=== PATIENT | female | born 1960 | race Hispanic/Latino ===

== ENCOUNTER 2023-12-13 09:44 | Inpatient (IN) | payer OTHER, SELFPAY ==
[2023-12-13 10:41] LABS: #Basophils Less than 0.03 10x3/uL (0.0-0.2); %Basophils 0.2 % (0.0-1.0); %Eosinophils 2.3 % (0.0-10.0); %Lymphocytes 12.3 % (21.0-51.0); %Monocytes 8.4 % (0.0-10.0); %Neutrophils 76.4 % (42.0-75.0); Hematocrit 29.4 % (36.0-47.0); Hemoglobin 9.8 g/dL (12.0-16.0); Mean Corpuscular HGB CONC 33.3 g/dL (32.0-36.0); Mean Corpuscular Hemoglobin 29.4 pg (27.0-31.0); Mean Corpuscular Volume 88.3 fL (78.0-98.0); Mean Platelet Volume 10.4 fL (7.4-10.4); Platelet Count 272 10x3/uL (130-400); RBC Distribution Width 14.1 % (11.5-14.5); Red Blood Cell (RBC) Count 3.33 mill/uL (4.20-5.40)
[2023-12-13 11:00] LABS: ALT (SGPT) 33 U/L (8-55); AST (SGOT) 31 U/L (5-34); Alkaline Phosphatase 222 U/L (40-110); Anion Gap 17 mmol/L (10-20); BUN (Urea Nitrogen) 52 mg/dL (9.8-20.1); Bilirubin, Total 0.7 mg/dL (0.2-1.2); Calc. Creatinine Clearance 0 mL/min (70-130); Calcium 8.8 mg/dL (7.8-10.44); Carbon Dioxide 23 mmol/L (23-31); Chloride 101 mmol/L (98-107); Estimated GFR 21; Globulin 4.2 g/dL (2.4-3.5); Glucose 88 mg/dL (80-115); Magnesium 1.6 mg/dL (1.6-2.6); Potassium 4.2 mmol/L (3.5-5.1); Protein, Total 7.2 g/dL (5.8-8.1); Sodium 137 mmol/L (136-145)
[2023-12-13 11:22] LABS: Troponin I 0.063 ng/mL (< 0.028)
[2023-12-13] MEDS ORDERED: Furosemide 40 MG (4 mL) VIAL ONE (12:21)
[2023-12-13] MEDS ORDERED: Aspirin Chewable 81 MG TAB ONE (12:21)
[2023-12-13] MEDS ORDERED: Nitroglycerin 0.4 MG TAB 1 EACH ONE (12:24)
[2023-12-13 13:53] LABS: Troponin I 0.054 ng/mL (< 0.028)
[2023-12-13] MEDS ORDERED: Dextrose 50% Abboject 50 ML SYRINGE SLOW IVP PRN (13:56)
[2023-12-13] MEDS ORDERED: Glucagon 1 MG/ML KIT IM PRN (13:56)
[2023-12-13] MEDS ORDERED: Dextrose 5% in Water 1,000 ML IV PRN (13:56)
[2023-12-13] MEDS ORDERED: Albuterol 200 PUFF INH INH PRN (14:36)
[2023-12-13 15:58] LABS: Troponin I 0.049 ng/mL (< 0.028)
[2023-12-13] MEDS: Nortriptyline 10 MG CAP PO SCH (20:59)
[2023-12-13] MEDS: Atorvastatin Calcium 40 MG TAB PO SCH (20:59)
[2023-12-13] MEDS: Gabapentin 300 MG CAP PO SCH (20:59)
[2023-12-13] MEDS: Insulin Glargine 30 UNITS/0.3 ML VIAL SC SCH (21:00)
[2023-12-14 04:52] LABS: #Basophils 0.03 10x3/uL (0.0-0.2); %Basophils 0.4 % (0.0-1.0); %Eosinophils 4.5 % (0.0-10.0); %Lymphocytes 14.2 % (21.0-51.0); %Monocytes 9.2 % (0.0-10.0); %Neutrophils 71.2 % (42.0-75.0); Hematocrit 28.1 % (36.0-47.0); Hemoglobin 9.1 g/dL (12.0-16.0); Mean Corpuscular HGB CONC 32.4 g/dL (32.0-36.0); Mean Corpuscular Hemoglobin 28.9 pg (27.0-31.0); Mean Corpuscular Volume 89.2 fL (78.0-98.0); Mean Platelet Volume 10.4 fL (7.4-10.4); Platelet Count 260 10x3/uL (130-400); Red Blood Cell (RBC) Count 3.15 mill/uL (4.20-5.40)
[2023-12-14] MEDS: Furosemide 40 MG (4 mL) VIAL SLOW IVP SCH ×2 (06:09→14:28)
[2023-12-14] MEDS: Aspirin 81 mg Enteric Coated Tablet PO SCH (08:23)
[2023-12-14] MEDS: NIFEdipine XL 60 MG ER.TAB PO SCH (08:23)
[2023-12-14] MEDS: Cholecalciferol 1,000 UNITS (25 MCG) TAB PO SCH (08:23)
[2023-12-14] MEDS: Ferrous Sulfate 325 MG TAB PO SCH (08:26)
[2023-12-14] MEDS: Allopurinol 100 MG TAB PO SCH (08:26)
[2023-12-14] MEDS: Albumin 25% 25 GM (100 mL) BOT IVPB SCH (14:56)
[2023-12-14 20:28] LABS: Bacteria/HPF None Seen HPF (None Seen); WBC/HPF 0-3 HPF (0-3)
[2023-12-14 20:52] LABS: Creatinine, Urine 84.94 mg/dL (47-110)
[2023-12-14 21:26] LABS: Bilirubin Negative (Negative); Blood, Urine Large (Negative); Glucose, Urine (Dipstick) Negative (Negative); Ketone, Urine Negative (Negative); Leukocyte Negative (Negative); Nitrite Negative (Negative); Protein, Urine (Dipstick) 100 mg/dL (Neg-Trace); Specific Gravity, Urine 1.025 (1.005-1.030); Urobilinogen 0.2 mg/dL (Less than 2); pH, Urine 5.5 (5.0-9.0)
[2023-12-14 21:29] LABS: Clarity Hazy (Clear)
[2023-12-15 09:02] LABS: Anion Gap 20 mmol/L (10-20); BUN (Urea Nitrogen) 49 mg/dL (9.8-20.1); Calc. Creatinine Clearance 39 mL/min (70-130); Calcium 9.3 mg/dL (7.8-10.44); Carbon Dioxide 24 mmol/L (23-31); Chloride 100 mmol/L (98-107); Estimated GFR 21; Glucose 106 mg/dL (80-115); Potassium 3.9 mmol/L (3.5-5.1); Sodium 140 mmol/L (136-145)
[2023-12-15 09:31] LABS: Anion Gap 18 mmol/L (10-20); BUN (Urea Nitrogen) 50 mg/dL (9.8-20.1); Calc. Creatinine Clearance 42 mL/min (70-130); Calcium 9.3 mg/dL (7.8-10.44); Carbon Dioxide 26 mmol/L (23-31); Chloride 100 mmol/L (98-107); Estimated GFR 23; Glucose 117 mg/dL (80-115); Potassium 3.8 mmol/L (3.5-5.1); Sodium 140 mmol/L (136-145)
[2023-12-15] MEDS: Tuberculin PPD 0.1 ML SYRINGE (10 TEST VIAL) I-DERMAL SCH (15:53)
[2023-12-15] MEDS: Metolazone 5 MG TAB PO SCH (15:54)
[2023-12-15] MEDS: Furosemide 100 MG (10 mL) VIAL SLOW IVP SCH (15:54)
[2023-12-15 16:48] LABS: SARS-CoV-2 E Target Negative; SARS-CoV-2 N2 Target Negative; SARS-CoV-2 NAA Rapid Test Not Detected (NotDetected); SARS-CoV-2 RdRP gene Negative
[2023-12-16 05:34] LABS: Anion Gap 17 mmol/L (10-20); BUN (Urea Nitrogen) 54 mg/dL (9.8-20.1); Calc. Creatinine Clearance 33 mL/min (70-130); Calcium 9.2 mg/dL (7.8-10.44); Carbon Dioxide 27 mmol/L (23-31); Chloride 98 mmol/L (98-107); Estimated GFR 17; Glucose 149 mg/dL (80-115); Potassium 3.5 mmol/L (3.5-5.1); Sodium 138 mmol/L (136-145)
[2023-12-16] MEDS: Furosemide 100 MG (10 mL) VIAL SLOW IVP SCH (06:01)
[2023-12-16] MEDS ORDERED: Bupivacaine 0.25% HCL 30 ML VIAL ONE (07:24)
[2023-12-16] MEDS ORDERED: EPINEPHrine 1 MG/ML VIAL ONE (07:24)
[2023-12-16] MEDS ORDERED: Lidocaine 2% PF 5 ML VIAL ONE (07:24)
[2023-12-16] MEDS ORDERED: Heparin 10,000 UNITS/ 10 ML VIAL ONE ×2 (07:24→09:51)
[2023-12-16] MEDS ORDERED: PROPOFOL 20 ML ONE (07:38)
[2023-12-16] MEDS ORDERED: fentaNYL PF 100 MCG/2 ML SYRINGE ONE (07:38)
[2023-12-16] MEDS ORDERED: Ondansetron PF 4 MG/2 ML Vial ONE (07:39)
[2023-12-16] MEDS ORDERED: Lidocaine 1% PF 5 ML VIAL ONE (07:39)
[2023-12-16] MEDS ORDERED: Lidocaine 2% 6 ML (Jelly) SYR ONE (07:41)
[2023-12-16] MEDS ORDERED: Ondansetron HCl/PF 4 MG/2 ML Vial IVP PRN (07:50)
[2023-12-16] MEDS ORDERED: Promethazine HCl 25 MG/ML VIAL IM PRN (07:50)
[2023-12-16] MEDS ORDERED: CEFAZOLIN 2 GM VIAL ONE (08:07)
[2023-12-16] MEDS ORDERED: Sodium Chloride 0.9% 100 ML ONE (08:07)
[2023-12-16 08:11] LABS: Bacteria/HPF None Seen HPF (None Seen); Bilirubin Negative (Negative); Blood, Urine 2+ (Negative); Clarity Clear (Clear); Glucose, Urine (Dipstick) Normal (Negative); Ketone, Urine Negative (Negative); Leukocyte Negative Leu/uL (Negative); Nitrite Negative (Negative); Protein, Urine (Dipstick) 200 mg/dL (Neg-Trace); Specific Gravity, Urine 1.011 (1.002-1.036); Squamous Epithelial 0-3 HPF (0-3); Urobilinogen Normal mg/dL (Less than 2); WBC/HPF 0-3 HPF (0-3); pH, Urine 5.5 (5.0-9.0)
[2023-12-16 10:39] LABS: Creatinine, Urine 68.81 mg/dL (47-110)
[2023-12-16] MEDS: Aspirin 81 mg Enteric Coated Tablet PO SCH (13:26)
[2023-12-17] MEDS ORDERED: Heparin 10,000 UNITS/ 10 ML VIAL ONE (09:58)
[2023-12-17 11:12] LABS: Anion Gap 16 mmol/L (10-20); BUN (Urea Nitrogen) 35 mg/dL (9.8-20.1); Calc. Creatinine Clearance 56 mL/min (70-130); Calcium 9.1 mg/dL (7.8-10.44); Carbon Dioxide 26 mmol/L (23-31); Chloride 101 mmol/L (98-107); Estimated GFR 31; Glucose 139 mg/dL (80-115); Potassium 3.4 mmol/L (3.5-5.1); Sodium 140 mmol/L (136-145)
[2023-12-17] MEDS ORDERED: Ipratropium/Albuterol 3 ML NEB NEB PRN (22:56)
[2023-12-17] MEDS: Sodium Chloride 0.65% Nasal 44 ML BOT EA NARE PRN (23:46)
[2023-12-18 06:18] LABS: Anion Gap 15 mmol/L (10-20); BUN (Urea Nitrogen) 30 mg/dL (9.8-20.1); Calc. Creatinine Clearance 45 mL/min (70-130); Calcium 8.9 mg/dL (7.8-10.44); Carbon Dioxide 31 mmol/L (23-31); Chloride 101 mmol/L (98-107); Estimated GFR 24; Glucose 150 mg/dL (80-115); Potassium 3.6 mmol/L (3.5-5.1); Sodium 143 mmol/L (136-145)
[2023-12-18 07:51] VITALS: BMI 41.2
[2023-12-18] MEDS ORDERED: Heparin 10,000 UNITS/ 10 ML VIAL ONE (10:07)
[2023-12-18] MEDS: READ PPD TEST SITE PO SCH (16:37)
[2023-12-18] MEDS: Insulin Lispro 100 UNIT/ML 10 ML VIAL SC PRN (17:27)
[2023-12-19 05:43] LABS: #Basophils 0.03 10x3/uL (0.0-0.2); %Basophils 0.4 % (0.0-1.0); %Eosinophils 5.7 % (0.0-10.0); %Lymphocytes 15.6 % (21.0-51.0); %Monocytes 5.9 % (0.0-10.0); Hematocrit 28.6 % (36.0-47.0); Hemoglobin 9.3 g/dL (12.0-16.0); Mean Corpuscular HGB CONC 32.5 g/dL (32.0-36.0); Mean Corpuscular Hemoglobin 28.8 pg (27.0-31.0); Mean Corpuscular Volume 88.5 fL (78.0-98.0); Mean Platelet Volume 9.7 fL (7.4-10.4); Platelet Count 332 10x3/uL (130-400); RBC Distribution Width 13.4 % (11.5-14.5); Red Blood Cell (RBC) Count 3.23 mill/uL (4.20-5.40)
[2023-12-19 05:59] LABS: Albumin 2.9 g/dL (3.4-4.8); Anion Gap 12 mmol/L (10-20); BUN (Urea Nitrogen) 17 mg/dL (9.8-20.1); Calc. Creatinine Clearance 54 mL/min (70-130); Calcium 8.7 mg/dL (7.8-10.44); Carbon Dioxide 30 mmol/L (23-31); Chloride 101 mmol/L (98-107); Estimated GFR 32; Glucose 156 mg/dL (80-115); Phosphorus 2.6 mg/dL (2.3-4.7); Potassium 3.2 mmol/L (3.5-5.1); Sodium 140 mmol/L (136-145)
[2023-12-19] MEDS ORDERED: Heparin 10,000 UNITS/ 10 ML VIAL ONE (10:02)
[2023-12-20 05:07] LABS: #Basophils 0.03 10x3/uL (0.0-0.2); %Basophils 0.4 % (0.0-1.0); %Eosinophils 3.9 % (0.0-10.0); %Lymphocytes 21.4 % (21.0-51.0); %Neutrophils 65.8 % (42.0-75.0); Hematocrit 30.9 % (36.0-47.0); Mean Corpuscular HGB CONC 32.4 g/dL (32.0-36.0); Mean Corpuscular Hemoglobin 29.5 pg (27.0-31.0); Mean Corpuscular Volume 91.2 fL (78.0-98.0); Mean Platelet Volume 9.3 fL (7.4-10.4); Platelet Count 352 10x3/uL (130-400); RBC Distribution Width 13.5 % (11.5-14.5); Red Blood Cell (RBC) Count 3.39 mill/uL (4.20-5.40)
[2023-12-20 17:56] LABS: HBSAB Concentration 26.98 mIU/mL; HBsAg Index 0.28 S/CO (0-0.99); Hep B Surf AB REACTIVE (NonReactive); Hep B Surf Ag NONREACTIVE S/CO (NonReactive); Hep C IgG Ab NONREACTIVE S/CO (NonReactive); Hep C Index 0.05 S/CO (0-0.79)
[2023-12-20 18:48] LABS: Hep B Core Total Ab NONREACTIVE (NonReactive)
[2023-12-21 05:07] LABS: Anion Gap 12 mmol/L (10-20); BUN (Urea Nitrogen) 37 mg/dL (9.8-20.1); Calc. Creatinine Clearance 33 mL/min (70-130); Calcium 9.2 mg/dL (7.8-10.44); Carbon Dioxide 28 mmol/L (23-31); Chloride 102 mmol/L (98-107); Estimated GFR 19; Glucose 144 mg/dL (80-115); Potassium 3.2 mmol/L (3.5-5.1); Sodium 139 mmol/L (136-145)
[2023-12-21] MEDS ORDERED: Acetaminophen 325 MG TAB PO PRN (07:49)
[2023-12-21 11:11] VITALS: BMI 38.1
[2023-12-21] MEDS: Potassium Bicarbonate/Cit Ac 20 MEQ TAB PO SCH ×2 (13:26→13:27)
[2023-12-21] MEDS ORDERED: Heparin 10,000 UNITS/ 10 ML VIAL ONE (13:27)
[2023-12-23 04:36] LABS: Anion Gap 15 mmol/L (10-20); BUN (Urea Nitrogen) 41 mg/dL (9.8-20.1); Calc. Creatinine Clearance 32 mL/min (70-130); Calcium 9.3 mg/dL (7.8-10.44); Carbon Dioxide 26 mmol/L (23-31); Chloride 102 mmol/L (98-107); Estimated GFR 18; Glucose 189 mg/dL (80-115); Potassium 3.1 mmol/L (3.5-5.1); Sodium 140 mmol/L (136-145)
[2023-12-23 13:33] VITALS: BP 144/84; TEMP 98.3
[2023-12-23] MEDS ORDERED: Heparin 10,000 UNITS/ 10 ML VIAL ONE (13:46)
== END 2023-12-23 14:35 | disposition home or self-care (01) | DRG 280 ==
LOC: ERS 09:44 → ERHOLD 12:33 → 2SW 19:32 → OBSVTOIN 12-14 18:10
PROVIDERS: ADMIT Internal Medicine; ATTEND Internal Medicine
PROC: 30233J1 Transfusion of Nonautologous Serum Albumin into Peripheral Vein, Percutaneous Approach (ICD-10-PCS; 2023-12-14)
PROC: 0JH63XZ Insertion of Tunneled Vascular Access Device into Chest Subcutaneous Tissue and Fascia, Percutaneous Approach (ICD-10-PCS; principal; 2023-12-16)
PROC: 02HV33Z Insertion of Infusion Device into Superior Vena Cava, Percutaneous Approach (ICD-10-PCS; 2023-12-16)
PROC: 3E033XZ Introduction of Vasopressor into Peripheral Vein, Percutaneous Approach (ICD-10-PCS; 2023-12-16)
DX: I13.2 Hypertensive heart and chronic kidney disease with heart failure and with stage 5 chronic kidney disease, or end stage renal disease (principal); I50.33 Acute on chronic diastolic (congestive) heart failure; I21.A1 Myocardial infarction type 2; J96.01 Acute respiratory failure with hypoxia; N18.6 End stage renal disease; G47.33 Obstructive sleep apnea (adult) (pediatric); D63.1 Anemia in chronic kidney disease; E87.6 Hypokalemia; Z79.82 Long term (current) use of aspirin; Z79.899 Other long term (current) drug therapy; E66.01 Morbid (severe) obesity due to excess calories; Z68.37 Body mass index [BMI] 37.0-37.9, adult; M10.9 Gout, unspecified; Z79.4 Long term (current) use of insulin; E11.22 Type 2 diabetes mellitus with diabetic chronic kidney disease; Z99.2 Dependence on renal dialysis
CPT/HCPCS: 36415; 36416; 71045; 80048; 80053; 80069; 81001; 82570; 83605; 83735; 83880; 84156; 84443; 84484; 84550; 85025; 85379; 86580; 86704; 86706; 86803; 87340; 90935; 93005; 93798; 93970; 94760; 96374; 96375; 96376; C1752; G0257; G0378; J0171; J0665; J1644; J1815; J1940; J2001; J2405; J2704; P9047; U0002

== ENCOUNTER 2024-04-18 08:18 | Outpatient (CLI) | payer OTHER | END 2024-04-18 08:19 | disposition home or self-care (01) | LOC: BICMAMMO 08:18 | PROVIDERS: ATTEND Nurse Practitioner Family | DX: Z12.31 Encounter for screening mammogram for malignant neoplasm of breast (principal); Z80.3 Family history of malignant neoplasm of breast | CPT/HCPCS: 77063; 77067 ==